=== PATIENT | male | born 1960 | race Caucasian/White ===

== ENCOUNTER 2018-01-17 20:39 | Emergency (ER) | payer MEDICAID ==
[2018-01-17] MEDS ORDERED: Sodium Chloride 0.9% 10 ML Syringe FLUSH PRN (20:48)
[2018-01-17] MEDS ORDERED: Famotidine 20 MG/2 ML SDV IVPUSH ONE (20:48)
--- NOTE | 2018-01-17 20:48 | EDM.PDOC ---
ED HPI GENERAL MEDICAL PROBLEM - General Chief Complaint: Neurological Problem Stated Complaint: facial droop Time Seen by Provider: 01/17/18 20:39 Source of Information: Reports: Patient, Old Records ([facility] chart/EMR) History Limitations: Reports: No Limitations - History of Present Illness INITIAL COMMENTS - FREE TEXT/NARRATIVE: The patient drove himself to the emergency room via private automobile for evaluation of some left facial paresthesias, tongue numbness, and facial drooping with symptoms starting at about 18:00 hours this evening. Symptoms are similar to his previous episode of Gloria's palsy with complete resolution of symptoms after that episode. He has been having some left-sided intermittent tooth pain over the last several weeks, however none currently. He did have similar type symptoms a couple of days ago. Patient did have a panic attack about one week ago with general paresthesias at that time but no other neurological deficits. No history of recent headaches, visual changes, diplopia , change in mental status, or other change in neurological status. The patient denies any chest pain/pressure, heart flutter, dizziness, orthostasis, orthopnea , diaphoresis, paresthesias, recent decreased exercise tolerance, or any other anginal-type symptoms. No recent history of abdominal pain, heartburn, nausea, diarrhea, melena, gross hematochezia, or any food intolerance, including fatty foods, etc.. He denies any gross hematuria, colic, or other UTI symptoms. The patient also denies any recent fever, cough, wheezing, dyspnea, etc.. He denies any pain or discomfort currently. Onset: Today, Gradual Onset Date: 01/17/18 Onset Time: 18:00 Duration: Constant, Getting Worse Location: Reports: Face. Denies: Head, Neck, Chest, Abdomen, Back, Pelvis, Upper Extremity, Left, Upper Extremity, Right, Lower Extremity, Left, Generalized, Radiates to Quality: Reports: Same as Previous Episode, Other (No current pain) Severity: Moderate Improves with: Reports: None Worsens with: Reports: None Context: Reports: Other (As above) Associated Symptoms: Reports: Weakness (Left facial). Denies: Confusion, Chest Pain, Cough, Diaphoresis, Fever/Chills, Headaches, Loss of Appetite, Malaise, Nausea/Vomiting, Seizure, Shortness of Breath, Syncope Treatments PAIL BAILER: Reports: Other (see below) (None) - Related Data Allergies Allergy/AdvReac Type Severity Reaction Status Date / Time tramadol Allergy Dizziness Verified 01/17/18 20:49 Home Meds: Home Meds Amitriptyline HCl 10 mg PO BEDTIME 05/30/14 [History] Aspirin 325 mg PO DAILY 05/30/14 [History] Atenolol [Tenormin] 25 mg PO DAILY 05/30/14 [History] DULoxetine HCl [Duloxetine HCl] 30 mg PO DAILY 05/30/14 [History] Exenatide [Byetta] 10 mcg SUBCUT BID 05/30/14 [History] Fenofibrate Nanocrystallized [Fenofibrate] 145 mg PO DAILY 05/30/14 [History] Hydrochlorothiazide 25 mg PO DAILY 05/30/14 [History] Insulin Aspart [NovoLOG] 60 units SUBCUT TIDAC 05/30/14 [History] Insulin Glarg,Human.Rec.Analog [Lantus] 100 unit SUBCUT BEDTIME 05/30/14 [ History] Lisinopril [Prinivil] 10 mg PO DAILY 05/30/14 [History] Omeprazole 40 mg PO DAILY 05/30/14 [History] QUEtiapine Fumarate [Seroquel] 25 mg PO DAILY 05/30/14 [History] Simvastatin [Zocor] 20 mg PO DAILY 05/30/14 [History] metFORMIN [Glucophage] 1,000 mg PO BID 05/30/14 [History] Acetaminophen 1,000 mg PO Q4HR PRN 11/05/15 [History] Ibuprofen [Motrin] 800 mg PO Q8H PRN 01/17/18 [History] Past Medical History HEENT History: Reports: Hard of Hearing, Impaired Vision, Other (See Below). Denies: Allergic Rhinitis, Cataract, Glaucoma, Macular Degeneration, Retinal Detachment Other HEENT History: Patient wears glasses. Right-sided hearing loss with no workup to this point Cardiovascular History: Reports: Arrhythmia, High Cholesterol, Hypertension, Other (See Below). Denies: Afib, Aneurysm, Blood Clots/VTE/DVT, CAD, Heart Failure, Heart Murmur, TX, PVD, Syncope Other Cardiovascular History: Hyperlipidemia with secondary fatty liver and fatty pancreas by ultrasound. Incomplete right bundle branch block history of tachycardia and mild left atrial enlargement Respiratory History: Reports: COPD, Sleep Apnea, Other (See Below). Denies: Asthma, Bronchitis, Recurrent, Intubation, Previous, PE, Pneumothorax, TB Other Respiratory History: Severe obstructive sleep apnea with current Bi-PAP therapy. COPD by chest x-ray Gastrointestinal History: Reports: Cholelithiasis, Colon Polyp, Diverticulosis, GERD, Other (See Below). Denies: Bowel Obstruction, Celiac Disease, Chronic Constipation, Chronic Diarrhea, Fecal Incontinence, Gastritis, GI Bleed, Hepatitis, Hiatal Hernia, Inflammatory Bowel Disease, Irritable Bowel Syndrome, Jaundice, Pancreatitis, PUD Other Gastrointestinal History: Fatty liver as above. Nonsymptomatic cholelithiasis and diverticulosis by CT scan. Colonic Polypectomy 3 with polyps of unknown character in about 2013 Genitourinary History: Reports: BPH, Pyelonephritis, Renal Calculus, Urinary Incontinence, Other (See Below). Denies: Acute Renal Failure, Chronic Renal Insuffiency, Diabetic Nephropathy, Retention, Urinary, STD, UTI, Recurrent Other Genitourinary History: Left-sided hydronephrosis and urolithiasis on with spontaneous passage. Large stable benign right renal cyst. Musculoskeletal History: Reports: Arthritis, Back Pain, Chronic, Neck Pain, Chronic, Osteoarthritis, Other (See Below). Denies: Amputation, Fracture, Gout , RA, SLE Other Musculoskeletal History: Distal fibular fracture at about age 13. Severe low back pain with secondary disability. Idiopathic myositis with secondary CPK elevation. Carpal tunnel syndrome Neurological History: Reports: Headaches, Chronic, Head Trauma, Neuropathy, Diabetic, Neuropathy, Peripheral, Other (See Below). Denies: Cerebral Aneurysms , Concussion, CVA, Migraines, MS, Parkinson's, Seizure, Speech Problems, TIA, Vertigo Other Neuro History: [place] Palsy left-sided. Minor left occipital contusion at about age 10. Psychiatric History: Reports: Anxiety, Depression, Panic Attack. Denies: Abuse , Victim of, ADD, ADHD, Addiction, Alzheimers Disease, Dementia, Psych Hospitalization(s), PTSD, Suicide Attempt, Suicidal Ideation Endocrine/Metabolic History: Reports: Diabetes, Type II, IDDM. Denies: Diabetes , Type I, Diabetes Mellitus, Type 3c, Hypothyroidism Hematologic History: Denies: Anemia, Blood Transfusion(s), Iron Deficiency Immunologic History: Reports: None. Denies: AIDS, HIV, SLE Oncologic (Cancer) History: Reports: None. Denies: Basal Cell Carcinoma, Cervix , Colon, Hodgkin's Lymphoma, Leukemia, Lymphoma, Malignant Melanoma, Non-Hodgkin 's Lymphoma, Squamous Cell Carcinoma Dermatologic History: Reports: None, Eczema, Psoriasis, Other (See Below) Other Dermatologic History: Lipoma of the right axillary region - Infectious Disease History Infectious Disease History: Reports: Chicken Pox, Measles, Mumps, Pertussis ( Whooping Cough), Other (See Below). Denies: C-Difficile, Meningitis, Mononucleosis, MRSA, Rheumatic Fever, Rubella, Scarlet Fever, Shingles, TB, VRE Other Infectious Disease History: Gloria's palsy as above - Past Surgical History Head Surgeries/Procedures: Reports: None HEENT Surgical History: Reports: Adenoidectomy, Oral Surgery, Tonsillectomy, Other (See Below). Denies: Cataract Surgery, Detached Retina, Eye Surgery, Laser Surgery, LASIK, Myringotomy w Tube(s), Naso-Sinus Surgery Other HEENT Surgeries/Procedures: Teeth extractions. Tonsillectomy and adenoidectomy at age 6 Cardiovascular Surgical History: Reports: None. Denies: Varicose, Vascular Surgery Respiratory Surgical History: Reports: None. Denies: Thoracentesis GI Surgical History: Reports: Appendectomy, Colonoscopy, Polypectomy, Other ( See Below). Denies: Cholecystectomy, EGD, Hernia, Abdominal, Hernia, Inguinal, Hernia Repair/Other Other GI Surgeries/Procedures: Colonoscopy with polypectomy as above in about 2013. Appendectomy at age 3 Male Surgical History: Reports: Circumcision, Other (See Below). Denies: Vasectomy Other Male Surgeries/Procedures: Circumcision as an Endocrine Surgical History: Reports: None. Denies: Thyroid Biopsy Neurological Surgical History: Reports: None. Denies: C-Spine, Discectomy, Laminectomy, Lumbar Spine, Sacral Spine, Spinal Fusion, Vertebroplasty Musculoskeletal Surgical History: Reports: None. Denies: Arthroscopic Procedure , Carpal Tunnel, Ganglion Cyst, Joint Replacement, ORIF, Shoulder Surgery Oncologic Surgical History: Reports: None Dermatological Surgical History: Reports: None - Past Imaging History Past Imaging History: Reports: Cardiac Echo (11/21/12 with ejection fraction of 69 %), CAT Scan (CT scan of the abdomen and pelvis with contrast on 03/16/15. Soft tissue ultrasound of the neck on 01/20/09), Mammogram ([place]), Sleep Study ( Multiple previous sleep studies with last evaluation on 01/20/16), Stress Testing (Cardiolite stress test on 08/22/08, possible additional follow-up distant repeat evaluation), Ultrasound (Renal ultrasound on 11/06/15. Right breast ultrasound on 09/15/17. Jose De Jesus ultrasound on 04/16/13), Other (See Below) (Nerve conduction studies and EMGs in about 2005) Social & Family History - Family History HEENT: Reports: Cataract, Impaired Vision, Other (See Below) Other HEENT Family History: Father with cataracts Cardiac: Reports: Arrhythmia, Bypass, CAD, Hypertension, TX, Pacemaker, Stent, Other (See Below) Other Cardiac Family History: Parents with known heart disease and father requiring a four-vessel CABG in his 50s and subsequently in his 50s to 60s. Mother with rheumatic fever which did require valve replacement with subsequent repeat replacement and pacemaker placement. Hyperlipidemia in his parents Respiratory: Reports: COPD, Other (See Below) Other Respiratory Family Hisory: Father with COPD with history of tobacco use GI: Reports: Colon Polyps, Diverticulitis, Diverticulosis, Other (See Below) Other GI Family History: Mother with diverticulitis. Parents with polyps of unknown type Neurological: Reports: CVA, Other (See Below) Other Neurological Family History: Parents with history of CVA Psychiatric: Reports: Anxiety, Depression, Other (See Below) Other Psychiatric Family History: Mother with anxiety depression disorder Endocrine/Metabolic: Reports: Diabetes, type II, Hypothyroidism, IDDM, Other ( See Below) Other Endocrine/Metabolic Family History: Father with hypothyroidism and AODMID Hematologic: Reports: Anemia, Other (See Below) Other Hematologic Family History: Mother with anemia Oncologic: Reports: Breast, Colon, Esophageal, Other (See Below) Other Oncologic Family History: Maternal grandmother with breast cancer. Paternal grandfather with possible esophageal cancer. Father with colon cancer - Tobacco Use Smoking Status *Q: Former Smoker Years of Tobacco use: 17 Packs/Tins Daily: 1 Packs/Tins Daily Comment: Smoked cigarettes between ages 20 and 37 Used Tobacco, but Quit: Yes Smoking Cessation Information Provided To Patient: No Second Hand Smoke Exposure: No Second Hand Smoke Education Provided: No - Alcohol Use Alcohol Use History: Yes Days Per Week of Alcohol Use: 0 (No previous DWIs, problems with alcohol abuse, etc.) Number of Drinks Per Day: 2 (Usually beer or mixed drinks about every 3 months) Total Drinks Per Week: 0 Alcohol Use in Last Twelve Months: Yes Alcohol Use Frequency: Socially - Recreational Drug Use Recreational Drug Use: No Drug Use in Last 12 Months: No Recreational Drug Type: Reports: Marijuana/Hashish (Experimental as a teenager) . Denies: Amphetamines (Speed), Cocaine, Heroin, Inhalants (Glues, Solvents, Aerosols), LSD (Acid), Methamphetamine, Morphine, Oxycodone - Living Situation & Occupation Living situation: Reports: ( from second in 1990 and from his first in 1986 with 2 children from this marriage), with Family (Dad) Occupation: Disabled (Secondary to low back pain as above in 2001) ED ROS GENERAL - Review of Systems Review Of Systems: See Below ED EXAM, NEURO - Physical Exam Exam: See Below Exam Limited By: No Limitations General Appearance: Alert, WD/WN, No Apparent Distress, Anxious (Mild) Eye Exam: Bilateral Eye: EOMI, Normal Fundi, Normal Inspection (No nystagmus), PERRL Ears: Normal External Exam, Normal Canal, Normal TMs, Hearing Loss (Stable by history, including right-sided hearing loss) Nose: Normal Inspection, Normal Mucosa, No Blood Throat/Mouth: Normal Gums, Normal Oropharynx, Normal Voice, No Airway Compromise. No: Normal Teeth (Multiple caries including broken teeth into the gumline with no acute abscesses), Dysphagia, Inflammation, Perioral Cyanosis Head Exam: Atraumatic, Normocephalic. No: Facial Swelling, Facial Tenderness, Sinus Tenderness Neck: Normal Inspection, Supple, Non-Tender, Full Range of Motion. No: Carotid Bruit, Lymphadenopathy (L), Lymphadenopathy (R), Thyromegaly Respiratory/Chest: No Respiratory Distress, Lungs Clear, Normal Breath Sounds, No Accessory Muscle Use, Chest Non-Tender. No: Pleural Rub, Retractions Cardiovascular: Normal Peripheral Pulses, Regular Rate, Rhythm, No Edema, No Gallop, No JVD, No Murmur, No Rub. No: Gallop/S3, Gallop/S4, Friction Rub GI/Abdominal: Normal Bowel Sounds, Soft, Non-Tender, No Organomegaly, No Distention, No Abnormal Bruit, No Mass, Other (Obese). No: Guarding (Male) Exam: Deferred Rectal (Males) Exam: Deferred Neurological: Alert, Normal Dorsiflexion, CN II-XII Intact, Normal Plantar Flexion, Normal Gait, Normal Reflexes (Negative Babinski's, finger to nose, and pronator rotation tests. No evidence of facial paresis, tongue deviation, orthostasis, etc.. Excellent reverse thought processes.). No: Normal Mood/ Affect (Mild anxious affect), No Motor/Sensory Deficits (Moderate left facial paresis with forehead sparing) Back Exam: Normal Inspection, Full Range of Motion. No: CVA Tenderness (L), CVA Tenderness (R), Muscle Spasm Extremities: Normal Inspection, Normal Range of Motion, Non-Tender, No Pedal Edema, Normal Capillary Refill. No: Jose's Sign Psychiatric: Anxious (Mild), Depressed Mood (Mild) Skin Exam: Warm, Dry, Intact, Normal Color, No Rash. No: Diaphoretic, Wound/ Incision EKG INTERPRETATION EKG Date: 01/17/18 Time: 21:04 Rhythm: NSR Rate (Beats/Min): 86 [place]: LAD-Left [place] Deviation (Extended left cardiac axis) P-Wave: Enlarged (Diffuse biphasic P wavesmoderate) QRS: RBBB (QRS interval 0.13 seconds representing a complete right bundle branch block with T-wave inversion in lead V1 and nonspecific ST changes in lead aVL) ST-T: Other (As above) QT: Normal MN/PQ Interval: Neuro 0.13 seconds representing a short MN interval with no delta waves noted. Extreme poor R-wave progression in the anterior leads Comparison: Change From Previous EKG (New nonspecific ST changes in lead aVL and conversion from previous incomplete to complete right bundle branch block since 11/05/15) EKG Interpretation Comments: 1. No acute ischemic changes 2. Complete right bundle branch block with previous history of incomplete right bundle branch block 3. Left atrial enlargement 4. Short MN interval Course - Vital Signs Last Recorded V/S: Last Vital Signs Temp 36.2 C 01/17/18 20:45 Pulse 90 01/17/18 21:18 Resp 22 H 01/17/18 21:18 BP 119/74 01/17/18 21:18 Pulse Ox 100 01/17/18 21:18 Vital Signs - 24 hr 01/17/18 01/17/18 01/17/18 20:45 21:05 21:18 Temperature [ 36.2 C Temporal] Pulse, 89 89 90 Peripheral [ Right Brachial] Respiratory 23 H 22 H 22 H Rate Blood Pressure 135/57 L 137/71 119/74 [Right Upper Arm] O2 Sat by Pulse 97 100 100 Oximetry 01/17/18 01/17/18 01/17/18 21:26 21:41 21:56 Temperature [ Temporal] Pulse, 91 96 97 Peripheral [ Right Brachial] Respiratory 23 H 24 H 23 H Rate Blood Pressure 128/67 128/73 130/100 H [Right Upper Arm] O2 Sat by Pulse 98 98 99 Oximetry 01/17/18 22:15 Temperature [ Temporal] Pulse, 99 Peripheral [ Right Brachial] Respiratory 21 H Rate Blood Pressure 159/75 H [Right Upper Arm] O2 Sat by Pulse 100 Oximetry - Orders/Labs/Meds Orders: Active Orders 24 hr Category Date Time Status Blood Glucose Check, Bedside [RC] STAT Care 01/17/18 20:48 Active Cardiac Monitoring [RC] STAT Care 01/17/18 20:48 Active EKG Documentation Completion [RC] ASDIRECTED Care 01/17/18 20:48 Active NIH Stroke Scale [RC] ASDIRECTED Care 01/17/18 20:48 Active Oxygen Therapy, ED [RC] CONTINUOUS Care 01/17/18 20:48 Active Peripheral IV Care [RC] . DIRECTED Care 01/17/18 20:48 Active Pulse Oximetry [RC] CONTINUOUS Care 01/17/18 20:48 Active Up With Assistance [RC] ASDIRECTED Care 01/17/18 20:48 Active Vital Signs [RC] PFP Care 01/17/18 20:48 Active Nothing per Oral Now Diet [DIET] Diet 01/17/18 Breakfast Active Chest 1V Frontal [CR] Stat Exams 01/17/18 20:48 Taken Head wo Cont [CT] Stat Exams 01/17/18 20:48 Taken PROLACTIN [REF] Stat Lab 01/17/18 20:50 Received Sodium Chloride 0.9% [Saline Flush] Med 01/17/18 20:48 Active 10 ml FLUSH ASDIRECTED PRN Obtain Past Medical Record [OM.PC] Stat Oth 01/17/18 20:48 Active Peripheral IV Insertion Adult [OM.PC] Stat Oth 01/17/18 20:48 Ordered Resuscitation Status Stat Resus Stat 01/17/18 20:48 Ordered Medication Orders Sodium Chloride (Saline Flush) 10 ml FLUSH ASDIRECTED PRN PRN Reason: Keep Vein Open Labs: Laboratory Tests 01/17/18 01/17/18 01/17/18 Range/Units 20:50 20:50 20:50 WBC 5.7 (4.0-10.2) K/uL RBC 3.90 L (4.33-5.41) M/uL Hgb 13.0 L (13.1-16.8) g/dL Hct 35.2 L (39.0-49.0) % MCV 90.3 D (84.0-98.0) fL MCH 33.3 (28.2-33.3) pg MCHC 36.9 H (31.7-36.0) g/dL RDW 12.9 (11.2-14.1) % Plt Count 276 (150-350) K/uL Neut % (Auto) 63.9 (45.0-80.0) % Lymph % (Auto) 27.1 (10.0-50.0) % Gilliam % (Auto) 7.4 (2.0-14.0) % Eos % (Auto) 1.1 (0.0-5.0) % Baso % (Auto) 0.5 (0.0-2.0) % Neut # (Auto) 3.61 (1.40-7.00) K/uL Lymph # (Auto) 1.53 (0.50-3.50) K/uL Gilliam # (Auto) 0.42 (0.00-1.00) K/uL Eos # (Auto) 0.06 (0.00-0.50) K/uL Baso # (Auto) 0.03 (0.00-0.20) K/uL PT 10.1 (9.8-11.7) SEC INR 0.9 APTT 24.7 (22.1-29.8) SEC D-Dimer, Quantitative < 100 (0-400) ng/mL Sodium (136-145) mmol/L Potassium (3.5-5.1) mmol/L Chloride (98-107) mmol/L Carbon Dioxide (21.0-32.0) mmol/L BUN (7-18) mg/dL Creatinine (0.51-1.17) mg/dL Est Cr Clr Drug Dosing mL/min Estimated GFR (MDRD) mL/min Glucose (74-106) mg/dL Lactic Acid (0.4-2.0) mmol/L Uric Acid (2.6-7.2) mg/dL Calcium (8.5-10.1) mg/dL Magnesium (1.8-2.4) mg/dL Total Bilirubin (0.2-1.0) mg/dL AST (15-37) U/L ALT (12-78) U/L Alkaline Phosphatase (46-116) IU/L Creatine Kinase (26-308) U/L Creatine Kinase Index (0.0-2.5) % CK-MB (CK-2) (0.00-3.60) ng/mL Troponin I (0.000-0.056) ng/mL NT-Pro-B Natriuret Pep (0-125) pg/mL Total Protein (6.4-8.2) g/dL Albumin (3.4-5.0) g/dL TSH, Ultra Sensitive (0.358-3.740) mIU/mL 01/17/18 01/17/18 Range/Units 20:50 20:50 WBC (4.0-10.2) K/uL RBC (4.33-5.41) M/uL Hgb (13.1-16.8) g/dL Hct (39.0-49.0) % MCV (84.0-98.0) fL MCH (28.2-33.3) pg MCHC (31.7-36.0) g/dL RDW (11.2-14.1) % Plt Count (150-350) K/uL Neut % (Auto) (45.0-80.0) % Lymph % (Auto) (10.0-50.0) % Gilliam % (Auto) (2.0-14.0) % Eos % (Auto) (0.0-5.0) % Baso % (Auto) (0.0-2.0) % Neut # (Auto) (1.40-7.00) K/uL Lymph # (Auto) (0.50-3.50) K/uL Gilliam # (Auto) (0.00-1.00) K/uL Eos # (Auto) (0.00-0.50) K/uL Baso # (Auto) (0.00-0.20) K/uL PT (9.8-11.7) SEC INR APTT (22.1-29.8) SEC D-Dimer, Quantitative (0-400) ng/mL Sodium 139 (136-145) mmol/L Potassium 4.3 (3.5-5.1) mmol/L Chloride 101 (98-107) mmol/L Carbon Dioxide 23.6 (21.0-32.0) mmol/L BUN 23 H (7-18) mg/dL Creatinine 1.06 (0.51-1.17) mg/dL Est Cr Clr Drug Dosing 76.89 mL/min Estimated GFR (MDRD) > 60 mL/min Glucose 262 H* (74-106) mg/dL Lactic Acid 1.6 (0.4-2.0) mmol/L Uric Acid 6.9 (2.6-7.2) mg/dL Calcium 9.1 (8.5-10.1) mg/dL Magnesium 1.2 L (1.8-2.4) mg/dL Total Bilirubin 0.5 (0.2-1.0) mg/dL AST 34 (15-37) U/L ALT 39 (12-78) U/L Alkaline Phosphatase 60 (46-116) IU/L Creatine Kinase 482 H (26-308) U/L Creatine Kinase Index 3.2 H (0.0-2.5) % CK-MB (CK-2) 15.60 H* (0.00-3.60) ng/mL Troponin I 0.000 (0.000-0.056) ng/mL NT-Pro-B Natriuret Pep 22 (0-125) pg/mL Total Protein 7.7 (6.4-8.2) g/dL Albumin 4.5 (3.4-5.0) g/dL TSH, Ultra Sensitive 3.996 H (0.358-3.740) mIU/mL Meds: Medications Generic Name Dose Route Start Last Admin Trade Name Freq PRN Reason Stop Dose Admin Sodium Chloride 10 ml 01/17/18 20:48 Saline Flush FLUSH ASDIRECTED PRN Keep Vein Open Discontinued Medications Generic Name Dose Route Start Last Admin Trade Name Freq PRN Reason Stop Dose Admin Famotidine 40 mg 01/17/18 20:48 01/17/18 20:59 Pepcid IVPUSH 01/17/18 20:49 40 mg ONETIME ONE Administration - Radiology Interpretation Free Text/Narrative:: panel monitor shows normal sinus rhythm with heart rate in the 80s to 90s with no ectopy or arrhythmia Chest x-ray, portable, shows evidence of moderate pulmonary obstructive disease and cardiomegaly with mild prominence of the proximal aortic arch. No CHF, pulmonary infiltrates, pneumothorax, etc. Telephone consultation at 21:30 hours with the radiology department at [facility]. Preliminary verbal report of noncontrast CT scan of the head with no evidence of acute CVA or cerebral changes. Possible bilateral mastoiditis, however. CT Results Date: 01/17/18 CT Results Time: 21:30 Departure - Departure Time of Disposition: 22:40 Disposition: DC/Tfer to [facility] Condition: Fair Clinical Impression: Hypothyroidism (acquired), Diabetes mellitus, Osteoarthritis, Complex dental caries, Peptic reflux disease, Mixed anxiety depressive disorder, Anemia, Hypomagnesemia, Coronary artery disease CVA (cerebral vascular accident) Qualifiers: CVA mechanism: unspecified Qualified Code(s): I63.9 - Cerebral infarction, unspecified COPD (chronic obstructive pulmonary disease) Qualifiers: COPD type: emphysema Emphysema type: panlobular Qualified Code(s): J43.1 - Panlobular emphysema - Discharge Information Referrals: Ruddy White PA [Physician Sinker Puller] - PCP,Unknown [Primary Care Provider] - Forms: ED Department Discharge, Interfacility Transfer EMTALA - Problem List & Annotations (1) CVA (cerebral vascular accident) SNOMED Code(s): 443319149 Code(s): I63.9 - CEREBRAL INFARCTION, UNSPECIFIED Status: Acute Priority : High Current Visit: Yes Onset Date: 01/17/18 Annotation/Comment:: Possible CVA with left facial paresis but no other neurological deficits. Note forehead sparing. Previous history of Golria's palsy in this area as above with previous complete resolution of those symptoms, including facial drooping. Stroke code called by me immediately upon patient's arrival to the emergency room. The patient already took 650 mg of aspirin chew and swallow shortly prior to arrival to our facility. Initial telephone consultation at 22:[address] Trevizo, emergency room physician at [facility], who does accept the patient for transfer to their emergency room for further treatment and evaluation. Treatment recommendations given, however he is requesting that I talk to the on-call neurologist prior to patient transfer. Subsequent telephone consultation at 22:[address] Roberts, neurologist, who is in agreement with the above treatment plan, with no further treatment recommendations given. Neurological status and vital signs stable at time of transfer. Ambulance transfer with web analytics developer accompaniment. Despite CT of the head findings as above no direct clinical evidence of mastoiditis at this time. Qualifiers: CVA mechanism: unspecified Qualified Code(s): I63.9 - Cerebral infarction, unspecified (2) Coronary artery disease SNOMED Code(s): 84832333 Code(s): I25.10 - ATHSCL HEART DISEASE OF [place] CORONARY ARTERY W/O ANG PCTRS Status: Acute Priority: High Current Visit: Yes Onset Date: Annotation/Comment:: Note CK-MB and cardiac index elevation normal troponin I, etc. Only mild nonspecific EKG changes as above. No chest pain or true anginal type symptoms with chest pain protocol not initiated in the emergency room. The patient already had SHANNON arrival as above. Consider cardiology consultation/workup depending on his clinical course. He does have a previous history of idiopathic myositis and is currently on a statin. Qualifiers: Coronary Disease-Associated Artery/Lesion type: [place] artery [place] vs. transplanted heart: [place] heart Associated angina: without angina Qualified Code(s): I25.10 - Atherosclerotic heart disease of [place] coronary artery without angina pectoris (3) COPD (chronic obstructive pulmonary disease) SNOMED Code(s): 38799142 Code(s): J44.9 - CHRONIC OBSTRUCTIVE PULMONARY DISEASE, UNSPECIFIED Status : Chronic Priority: Medium Current Visit: Yes Annotation/Comment:: COPD by chest x-ray. Note history of sleep apnea with patient compliant with his BiPAP. No recent fever or bronchitic type symptoms. Consider PFTs on an outpatient basis Qualifiers: COPD type: emphysema Emphysema type: panlobular Qualified Code(s): J43.1 - Panlobular emphysema (4) Hypothyroidism (acquired) SNOMED Code(s): 141850309 Code(s): E03.9 - HYPOTHYROIDISM, UNSPECIFIED Status: Acute Priority: Medium Current Visit: Yes Onset Date: 01/17/18 Annotation/Comment:: Newly diagnosed. No thyroid type symptoms. Consider initiation of Synthroid supplementation and repeat TSH in 4 weeks (5) Mixed anxiety depressive disorder SNOMED Code(s): 969895635 Code(s): F41.8 - OTHER SPECIFIED ANXIETY DISORDERS Status: Chronic Priority: Medium Current Visit: Yes Annotation/Comment:: Stable by history with improvement after recent change in his medical therapy by his history. Note panic attack one week ago. Continue to observe closely by his regular providers. (6) Peptic reflux disease SNOMED Code(s): 738423531 Code(s): K21.9 - GASTRO-ESOPHAGEAL REFLUX DISEASE WITHOUT ESOPHAGITIS Status: Chronic Priority: Medium Current Visit: Yes Annotation/Comment:: Stable by history. Note mild anemia with no evidence of GI bleed. High-dose IV Pepcid given as GI prophylaxis (7) Complex dental caries SNOMED Code(s): 45244107 Code(s): K02.9 - DENTAL CARIES, UNSPECIFIED Status: Chronic Current Visit : Yes Onset Date: 05/30/14 Annotation/Comment:: Persistent caries with patient having poor dental follow-up. Follow-up with dentist SHANNON advisable (8) Diabetes mellitus SNOMED Code(s): 25457110 Code(s): E11.9 - TYPE 2 DIABETES MELLITUS WITHOUT COMPLICATIONS Status: Chronic Priority: Medium Current Visit: Yes Annotation/Comment:: Patient does not take home Accu-Cheks and uses a sliding scale only based on symptoms. Continue to observe closely with diabetic teaching advisable. Compliance with did already strongly encouraged. (9) Osteoarthritis SNOMED Code(s): 414469357 Code(s): M19.90 - UNSPECIFIED OSTEOARTHRITIS, UNSPECIFIED SITE Status: Chronic Priority: Low Current Visit: Yes Annotation/Comment:: Stable by history with current disability secondary to chronic low back pain as above. (10) Anemia SNOMED Code(s): 535489621 Code(s): D64.9 - ANEMIA, UNSPECIFIED Status: Acute Priority: Medium Current Visit: Yes Onset Date: ~01/17/18 Annotation/Comment:: As above. Consider workup depending on his clinical course. Qualifiers: Anemia type: unspecified type Qualified Code(s): D64.9 - Anemia, unspecified (11) Hypomagnesemia SNOMED Code(s): 037542709 Code(s): E83.42 - HYPOMAGNESEMIA Status: Acute Priority: Medium Current Visit: Yes Onset Date: 01/17/18 Annotation/Comment:: Consider magnesium oxide supplementation - Problem List Review Problem List Initiated/Reviewed/Updated: Yes - My Orders Last 24 Hours: My Active Orders 01/17/18 20:48 Blood Glucose Check, Bedside [RC] STAT Cardiac Monitoring [RC] STAT EKG Documentation Completion [RC] ASDIRECTED NIH Stroke Scale [RC] ASDIRECTED Oxygen Therapy, ED [RC] CONTINUOUS Peripheral IV Care [RC] . DIRECTED Pulse Oximetry [RC] CONTINUOUS Up With Assistance [RC] ASDIRECTED Vital Signs [RC] PFP Chest 1V Frontal [CR] Stat Head wo Cont [CT] Stat Sodium Chloride 0.9% [Saline Flush] 10 ml FLUSH ASDIRECTED PRN Obtain Past Medical Record [OM.PC] Stat Peripheral IV Insertion Adult [OM.PC] Stat Resuscitation Status Stat 01/17/18 20:50 PROLACTIN [REF] Stat 01/17/18 Breakfast Nothing per Oral Now Diet [DIET] - Assessment/Plan Last 24 Hours: My Active Orders 01/17/18 20:48 Blood Glucose Check, Bedside [RC] STAT Cardiac Monitoring [RC] STAT EKG Documentation Completion [RC] ASDIRECTED NIH Stroke Scale [RC] ASDIRECTED Oxygen Therapy, ED [RC] CONTINUOUS Peripheral IV Care [RC] . DIRECTED Pulse Oximetry [RC] CONTINUOUS Up With Assistance [RC] ASDIRECTED Vital Signs [RC] PFP Chest 1V Frontal [CR] Stat Head wo Cont [CT] Stat Sodium Chloride 0.9% [Saline Flush] 10 ml FLUSH ASDIRECTED PRN Obtain Past Medical Record [OM.PC] Stat Peripheral IV Insertion Adult [OM.PC] Stat Resuscitation Status Stat 01/17/18 20:50 PROLACTIN [REF] Stat 01/17/18 Breakfast Nothing per Oral Now Diet [DIET] Assessment:: As above Plan: As above. Extensive precautions were given to the patient, who is in agreement with the treatment plan. Ambulance transfer with web analytics developer accompaniment
[2018-01-17 21:19] LABS: CHLORIDE,CL 101 mmol/L (98-107); SODIUM,NA 139 mmol/L (136-145)
[2018-01-17 22:31] VITALS: BP 159/75
== END 2018-01-17 22:55 ==
LOC: LL.ED 20:39
DX: K21.9 Gastro-esophageal reflux disease without esophagitis (principal); K02.9 Dental caries, unspecified; F41.8 Other specified anxiety disorders; M19.90 Unspecified osteoarthritis, unspecified site; J43.1 Panlobular emphysema; D64.9 Anemia, unspecified; E03.9 Hypothyroidism, unspecified; E11.9 Type 2 diabetes mellitus without complications; E78.00 Pure hypercholesterolemia, unspecified; I10 Essential (primary) hypertension; E78.5 Hyperlipidemia, unspecified; G47.33 Obstructive sleep apnea (adult) (pediatric); Z88.5 Allergy status to narcotic agent; Z79.82 Long term (current) use of aspirin; Z79.899 Other long term (current) drug therapy; Z79.4 Long term (current) use of insulin; Z99.89 Dependence on other enabling machines and devices; Z87.440 Personal history of urinary (tract) infections; Z87.891 Personal history of nicotine dependence; Z86.73 Personal history of transient ischemic attack (TIA), and cerebral infarction without residual deficits
CPT/HCPCS: 36415; 70450; 71045; 80053; 82550; 82553; 83605; 83735; 83880; 84146; 84443; 84484; 84550; 85025; 85379; 85610; 85730; 93005; 96374; 99285; S0028

== ENCOUNTER 2020-09-12 14:10 | Emergency (ER) | payer MEDICAID ==
[2020-09-12 14:18] VITALS: BP 176/91; PULSE 74
[2020-09-12 14:55] LABS: CHLORIDE,CL 100 mmol/L (98-107); SODIUM,NA 137 mmol/L (136-145)
--- NOTE | 2020-09-12 15:39 | EDM.PDOC ---
ED HPI GENERAL MEDICAL PROBLEM - General Chief Complaint: General Stated Complaint: headache Time Seen by Provider: 09/12/20 14:17 Source of Information: Reports: Patient History Limitations: Reports: No Limitations - History of Present Illness INITIAL COMMENTS - FREE TEXT/NARRATIVE: ABDALLA for past 3 days Alos with decreased appetite and body aches No known Covid exposures No chest pain No N/V/D Is diabetic but does not check his glucose Onset: Gradual Duration: Day(s):, Intermittent Location: Reports: Generalized headache, back of head Pain Score (Numeric/FACES): 7 - Related Data Allergies Allergy/AdvReac Type Severity Reaction Status Date / Time tramadol Allergy Dizziness Verified 09/12/20 14:18 Home Meds: Home Meds Amitriptyline HCl 10 mg PO BEDTIME 05/30/14 [History] Aspirin 325 mg PO DAILY 05/30/14 [History] DULoxetine HCl [Duloxetine HCl] 30 mg PO TID 05/30/14 [History] Exenatide [Byetta] 10 mcg SUBCUT BID 05/30/14 [History] Fenofibrate Nanocrystallized [Fenofibrate] 145 mg PO DAILY 05/30/14 [History] Hydrochlorothiazide 25 mg PO DAILY 05/30/14 [History] Insulin Aspart [NovoLOG] 60 units SUBCUT TIDAC 05/30/14 [History] Insulin Glarg,Human.Rec.Analog [Lantus] 100 unit SUBCUT BEDTIME 05/30/14 [History] QUEtiapine Fumarate [Seroquel] 25 mg PO DAILY 05/30/14 [History] Simvastatin [Zocor] 20 mg PO DAILY 05/30/14 [History] atenoloL [Tenormin] 25 mg PO DAILY 05/30/14 [History] lisinopriL [Prinivil] 10 mg PO DAILY 05/30/14 [History] metFORMIN [Glucophage] 1,000 mg PO BID 05/30/14 [History] Acetaminophen 1,000 mg PO Q4HR PRN 11/05/15 [History] Ibuprofen [Motrin] 800 mg PO Q8H PRN 01/17/18 [History] Past Medical History HEENT History: Reports: Hard of Hearing, Impaired Vision, Other (See Below) Other HEENT History: Patient wears glasses. Right-sided hearing loss with no workup to this point Cardiovascular History: Reports: Arrhythmia, High Cholesterol, Hypertension, Other (See Below) Other Cardiovascular History: Hyperlipidemia with secondary fatty liver and fatty pancreas by ultrasound. Incomplete right bundle branch block history of tachycardia and mild left atrial enlargement Respiratory History: Reports: COPD, Sleep Apnea, Other (See Below) Other Respiratory History: Severe obstructive sleep apnea with current Bi-PAP therapy. COPD by chest x-ray Gastrointestinal History: Reports: Cholelithiasis, Colon Polyp, Diverticulosis, GERD, Other (See Below) Other Gastrointestinal History: Fatty liver as above. Nonsymptomatic cholelithiasis and diverticulosis by CT scan. Colonic Polypectomy 3 with polyps of unknown character in about 2013 Genitourinary History: Reports: BPH, Pyelonephritis, Renal Calculus, Urinary Incontinence, Other (See Below) Other Genitourinary History: Left-sided hydronephrosis and urolithiasis on 03/16/15 with spontaneous passage. Large stable benign right renal cyst. Musculoskeletal History: Reports: Arthritis, Back Pain, Chronic, Neck Pain, Chronic, Osteoarthritis, Other (See Below) Other Musculoskeletal History: Distal fibular fracture at about age 13. Severe low back pain with secondary disability. Idiopathic myositis with secondary CPK elevation. Carpal tunnel syndrome Neurological History: Reports: Headaches, Chronic, Head Trauma, Neuropathy, Diabetic, Neuropathy, Peripheral, Other (See Below) Other Neuro History: Carter Palsy left-sided. Minor left occipital contusion at about age 10. Psychiatric History: Reports: Anxiety, Depression, Panic Attack Endocrine/Metabolic History: Reports: Diabetes, Type II, IDDM Immunologic History: Reports: None Oncologic (Cancer) History: Reports: None Dermatologic History: Reports: None, Eczema, Psoriasis, Other (See Below) Other Dermatologic History: Lipoma of the right axillary region - Infectious Disease History Infectious Disease History: Reports: Chicken Pox, Measles, Mumps, Pertussis (Whooping Cough), Other (See Below) Other Infectious Disease History: Gloria's palsy as above - Past Surgical History Head Surgeries/Procedures: Reports: None HEENT Surgical History: Reports: Adenoidectomy, Oral Surgery, Tonsillectomy, Other (See Below) Other HEENT Surgeries/Procedures: Teeth extractions. Tonsillectomy and adenoidectomy at age 6 Cardiovascular Surgical History: Reports: None Respiratory Surgical History: Reports: None GI Surgical History: Reports: Appendectomy, Colonoscopy, Polypectomy, Other (See Below) Other GI Surgeries/Procedures: Colonoscopy with polypectomy as above in about 2013. Appendectomy at age 3 Male Surgical History: Reports: Circumcision, Other (See Below) Other Male Surgeries/Procedures: Circumcision as an Endocrine Surgical History: Reports: None Neurological Surgical History: Reports: None Musculoskeletal Surgical History: Reports: None Oncologic Surgical History: Reports: None Dermatological Surgical History: Reports: None - Past Imaging History Past Imaging History: Reports: Cardiac Echo (11/21/12 with ejection fraction of 69%), CAT Scan (CT scan of the abdomen and pelvis with contrast on 03/16/15. Soft tissue ultrasound of the neck on 01/20/09), Mammogram (), Sleep Study (Multiple previous sleep studies with last evaluation on 01/20/16), Stress Testing (Cardiolite stress test on 08/22/08, possible additional follow-up distant re peat evaluation), Ultrasound (Renal ultrasound on 11/06/15. Right breast ultrasound on 09/15/17. Jose De Jesus ultrasound on 04/16/13), Other (See Below) (Nerve conduction studies and EMGs in about 2005) Social & Family History - Family History HEENT: Reports: Cataract, Impaired Vision, Other (See Below) Other HEENT Family History: Father with cataracts Cardiac: Reports: Arrhythmia, Bypass, CAD, Hypertension, [place], Pacemaker, Stent, Other (See Below) Other Cardiac Family History: Parents with known heart disease and father requiring a four-vessel CABG in his 50s and subsequently in his 50s to 60s. Mother with rheumatic fever which did require valve replacement with subsequent repeat replacement and pacemaker placement. Hyperlipidemia in his parents Respiratory: Reports: COPD, Other (See Below) Other Respiratory Family Hisory: Father with COPD with history of tobacco use GI: Reports: Colon Polyps, Diverticulitis, Diverticulosis, Other (See Below) Other GI Family History: Mother with diverticulitis. Parents with polyps of unknown type Neurological: Reports: CVA, Other (See Below) Other Neurological Family History: Parents with history of CVA Psychiatric: Reports: Anxiety, Depression, Other (See Below) Other Psychiatric Family History: Mother with anxiety depression disorder Endocrine/Metabolic: Reports: Diabetes, type II, Hypothyroidism, IDDM, Other (See Below) Other Endocrine/Metabolic Family History: Father with hypothyroidism and AODMID Hematologic: Reports: Anemia, Other (See Below) Other Hematologic Family History: Mother with anemia Oncologic: Reports: Breast, Colon, Esophageal, Other (See Below) Other Oncologic Family History: Maternal grandmother with breast cancer. Paternal grandfather with possible esophageal cancer. Father with colon cancer - Tobacco Use Tobacco Use Status *Q: Former Tobacco User Years of Tobacco use: 10 Packs/Tins Daily: 1 Used Tobacco, but Quit: Yes Month/Year Tobacco Last Used: 1999 Second Hand Smoke Exposure: No - Caffeine Use Caffeine Use: Reports: Soda - Recreational Drug Use Recreational Drug Use: No - Living Situation & Occupation Living situation: Reports: ( from second in 1990 and from his first in 1986 with 2 children from this marriage), with Family (Dad) Occupation: Disabled (Secondary to low back pain as above in 2001) ED ROS GENERAL - Review of Systems Review Of Systems: See Below Constitutional: Reports: Other (Body aches) HEENT: Reports: No Symptoms Respiratory: Reports: No Symptoms Cardiovascular: Reports: No Symptoms GI/Abdominal: Reports: No Symptoms Musculoskeletal: Reports: No Symptoms Neurological: Reports: Headache ED EXAM, GENERAL - Physical Exam Exam: See Below Exam Limited By: No Limitations General Appearance: Alert, WD/WN Throat/Mouth: Normal Oropharynx Neck: Supple Respiratory/Chest: Lungs Clear Cardiovascular: Regular Rate, Rhythm GI/Abdominal: Soft, Non-Tender Extremities: No Pedal Edema Neurological: Alert, Oriented Psychiatric: Normal Affect, Normal Mood Course - Vital Signs Last Recorded V/S: Last Vital Signs Temp 96.8 F L 09/12/20 14:11 Pulse 74 09/12/20 14:11 Resp 18 09/12/20 14:11 BP 176/91 H 09/12/20 14:11 Pulse Ox 100 09/12/20 14:11 - Orders/Labs/Meds Labs: Laboratory Tests 09/12/20 09/12/20 09/12/20 Range/Units 14:19 14:35 14:35 WBC 4.4 (4.0-10.2) K/uL RBC 3.41 L (4.33-5.41) M/uL Hgb 10.2 L D (13.1-16.8) g/dL Hct 29.6 L (39.0-49.0) % MCV 86.8 D (84.0-98.0) fL MCH 29.9 (28.2-33.3) pg MCHC 34.5 (31.7-36.0) g/dL RDW 12.0 (11.2-14.1) % Plt Count 351 H D (150-350) K/uL Neut % (Auto) 77.1 (45.0-80.0) % Lymph % (Auto) 13.3 (10.0-50.0) % [place] % (Auto) 8.5 (2.0-14.0) % Eos % (Auto) 0.9 (0.0-5.0) % Baso % (Auto) 0.2 (0.0-2.0) % Neut # (Auto) 3.35 (1.40-7.00) K/uL Lymph # (Auto) 0.58 (0.50-3.50) K/uL [place] # (Auto) 0.37 (0.00-1.00) K/uL Eos # (Auto) 0.04 (0.00-0.50) K/uL Baso # (Auto) 0.01 (0.00-0.20) K/uL Sodium 137 (136-145) mmol/L Potassium 4.7 (3.5-5.1) mmol/L Chloride 100 (98-107) mmol/L Carbon Dioxide 27.9 (21.0-32.0) mmol/L BUN 9 (7-18) mg/dL Creatinine 0.66 (0.51-1.17) mg/dL Est Cr Clr Drug Dosing 119.02 mL/min Estimated GFR (MDRD) > 60 mL/min Glucose 343 H (74-106) mg/dL Calcium 8.6 (8.5-10.1) mg/dL Total Bilirubin 0.4 (0.2-1.0) mg/dL AST 15 (15-37) U/L ALT 21 (12-78) U/L Alkaline Phosphatase 61 (46-116) IU/L Total Protein 7.0 (6.4-8.2) g/dL Albumin 2.7 L (3.4-5.0) g/dL SARS-CoV-2 RNA (EDUAR) Positive H (NEGATIVE) - Re-Assessments/Exams Free Text/Narrative Re-Assessment/Exam: 09/12/20 15:38 See lab Covid positive Departure - Departure Time of Disposition: 15:40 Disposition: Home, Self-Care 01 Clinical Impression: COVID-19 - Discharge Information *PRESCRIPTION DRUG MONITORING PROGRAM REVIEWED*: Not Applicable *COPY OF PRESCRIPTION DRUG MONITORING REPORT IN PATIENT [place]: Not Applicable Instructions: COVID-19, Prevent the Spread of COVID-19 if You Are Sick - [facility] Referrals: Ruddy White, PA [Primary Care Provider] - Additional Instructions: Tylenol or Motrin Monitor blood glucose and improve glucose control Diet as tolerated Follow up in clinic Sepsis Event Note (ED) - Evaluation Sepsis Screening Result: No Definite Risk - Focused Exam Vital Signs: Vital Signs Temp Pulse Resp BP Pulse Ox 09/12/20 14:11 96.8 F L 74 18 176/91 H 100
[2020-09-12] MEDS: Ketorolac 60 MG/2 ML SDV IM ONE (16:01)
== END 2020-09-12 16:20 | disposition home or self-care (01) ==
LOC: LL.ED 14:10
DX: U07.1 COVID-19 (principal); I10 Essential (primary) hypertension; J44.9 Chronic obstructive pulmonary disease, unspecified; M19.90 Unspecified osteoarthritis, unspecified site; E78.5 Hyperlipidemia, unspecified; F41.9 Anxiety disorder, unspecified; F32.9 Major depressive disorder, single episode, unspecified; Z88.5 Allergy status to narcotic agent; E11.40 Type 2 diabetes mellitus with diabetic neuropathy, unspecified; Z79.82 Long term (current) use of aspirin; Z79.899 Other long term (current) drug therapy; Z79.4 Long term (current) use of insulin
CPT/HCPCS: 36415; 80053; 85025; 96372; 99284; J1885; U0002

== ENCOUNTER 2020-12-02 22:03 | Emergency (ER) | payer MEDICAID ==
[2020-12-02 22:43] LABS: CHLORIDE,CL 99 mmol/L (98-107); SODIUM,NA 134 mmol/L (136-145)
[2020-12-02] MEDS: Morphine 4 MG/ML Syringe IVPUSH ONE (23:02)
[2020-12-02] MEDS: Ondansetron 4 MG/2 ML SDV IVPUSH ONE (23:06)
[2020-12-02] MEDS: Sodium Chloride 0.9% 1,000 ML IV ONE (23:06)
--- NOTE | 2020-12-02 23:28 | EDM.PDOC ---
ED HPI GENERAL MEDICAL PROBLEM - General Chief Complaint: Abdominal Pain Stated Complaint: LEFT SIDE PAIN Time Seen by Provider: 12/02/20 22:20 Source of Information: Reports: Patient History Limitations: Reports: No Limitations - History of Present Illness INITIAL COMMENTS - FREE TEXT/NARRATIVE: Pt states he has had left sided abdominal pain for several days Thought he was constipated and used enema without relief No fever No N/V/D Pain is in left side and moves to back and groin No trauma No previous hx/o same Onset: Gradual Duration: Day(s):, Getting Worse Location: Reports: Abdomen, Radiates to (Back) Quality: Reports: Stabbing Treatments [employer] REPA[employer]ER: Reports: Other Medication(s) Left Lower Abdomen Pain Score (Numeric/FACES): 9 - Related Data Allergies Allergy/AdvReac Type Severity Reaction Status Date / Time tramadol Allergy Dizziness Verified 12/02/20 22:05 Home Meds: Home Meds Amitriptyline HCl 10 mg PO BEDTIME 05/30/14 [History] Aspirin 325 mg PO DAILY 05/30/14 [History] DULoxetine HCl [Duloxetine HCl] 30 mg PO TID 05/30/14 [History] Exenatide [Byetta] 10 mcg SUBCUT BID 05/30/14 [History] Fenofibrate Nanocrystallized [Fenofibrate] 145 mg PO DAILY 05/30/14 [History] Hydrochlorothiazide 25 mg PO DAILY 05/30/14 [History] Insulin Aspart [NovoLOG] 60 units SUBCUT TIDAC 05/30/14 [History] Insulin Glarg,Human.Rec.Analog [Lantus] 100 unit SUBCUT BEDTIME 05/30/14 [History] QUEtiapine Fumarate [Seroquel] 25 mg PO DAILY 05/30/14 [History] Simvastatin [Zocor] 20 mg PO DAILY 05/30/14 [History] atenoloL [Tenormin] 25 mg PO DAILY 05/30/14 [History] lisinopriL [Prinivil] 10 mg PO DAILY 05/30/14 [History] metFORMIN [Glucophage] 1,000 mg PO BID 05/30/14 [History] Acetaminophen 1,000 mg PO Q4HR PRN 11/05/15 [History] Ibuprofen [Motrin] 800 mg PO Q8H PRN 01/17/18 [History] Past Medical History HEENT History: Reports: Hard of Hearing, Impaired Vision, Other (See Below) Other HEENT History: Patient wears glasses. Right-sided hearing loss with no workup to this point Cardiovascular History: Reports: Arrhythmia, High Cholesterol, Hypertension, Other (See Below) Other Cardiovascular History: Hyperlipidemia with secondary fatty liver and fatty pancreas by ultrasound. Incomplete right bundle branch block history of tachycardia and mild left atrial enlargement Respiratory History: Reports: COPD, Sleep Apnea, Other (See Below) Other Respiratory History: Severe obstructive sleep apnea with current Bi-PAP therapy. COPD by chest x-ray Gastrointestinal History: Reports: Cholelithiasis, Colon Polyp, Diverticulosis, GERD, Other (See Below) Other Gastrointestinal History: Fatty liver as above. Nonsymptomatic cholelithiasis and diverticulosis by CT scan. Colonic Polypectomy 3 with polyps of unknown character in about 2013 Genitourinary History: Reports: BPH, Pyelonephritis, Renal Calculus, Urinary Incontinence, Other (See Below) Other Genitourinary History: Left-sided hydronephrosis and urolithiasis on 03/16/15 with spontaneous passage. Large stable benign right renal cyst. Musculoskeletal History: Reports: Arthritis, Back Pain, Chronic, Neck Pain, Chronic, Osteoarthritis, Other (See Below) Other Musculoskeletal History: Distal fibular fracture at about age 13. Severe low back pain with secondary disability. Idiopathic myositis with secondary CPK elevation. Carpal tunnel syndrome Neurological History: Reports: Headaches, Chronic, Head Trauma, Neuropathy, Diabetic, Neuropathy, Peripheral, Other (See Below) Other Neuro History: [place] Palsy left-sided. Minor left occipital contusion at about age 10. Psychiatric History: Reports: Anxiety, Depression, Panic Attack Endocrine/Metabolic History: Reports: Diabetes, Type II, IDDM Immunologic History: Reports: None Oncologic (Cancer) History: Reports: None Dermatologic History: Reports: None, Eczema, Psoriasis, Other (See Below) Other Dermatologic History: Lipoma of the right axillary region - Infectious Disease History Infectious Disease History: Reports: Chicken Pox, Measles, Mumps, Pertussis (Whooping Cough), Other (See Below) Other Infectious Disease History: Gloria's palsy as above - Past Surgical History Head Surgeries/Procedures: Reports: None HEENT Surgical History: Reports: Adenoidectomy, Oral Surgery, Tonsillectomy, Other (See Below) Other HEENT Surgeries/Procedures: Teeth extractions. Tonsillectomy and adenoidectomy at age 6 Cardiovascular Surgical History: Reports: None Respiratory Surgical History: Reports: None GI Surgical History: Reports: Appendectomy, Colonoscopy, Polypectomy, Other (See Below) Other GI Surgeries/Procedures: Colonoscopy with polypectomy as above in about 2013. Appendectomy at age 3 Male Surgical History: Reports: Circumcision, Other (See Below) Other Male Surgeries/Procedures: Circumcision as an Endocrine Surgical History: Reports: None Neurological Surgical History: Reports: None Musculoskeletal Surgical History: Reports: None Oncologic Surgical History: Reports: None Dermatological Surgical History: Reports: None - Past Imaging History Past Imaging History: Reports: Cardiac Echo (11/21/12 with ejection fraction of 69%), CAT Scan (CT scan of the abdomen and pelvis with contrast on 03/16/15. Soft tissue ultrasound of the neck on 01/20/09), Mammogram (), Sleep Study (Multiple previous sleep studies with last evaluation on 01/20/16), Stress Testing (Cardiolite stress test on 08/22/08, possible additional follow-up distant repeat evaluation), Ultrasound (Renal ultrasound on 11/06/15. Right breast ultrasound on 09/15/17. [facility] De Jesus ultrasound on 04/16/13), Other (See Below) (Nerve conduction studies and EMGs in about 2005) Social & Family History - Family History HEENT: Reports: Cataract, Impaired Vision, Other (See Below) Other HEENT Family History: Father with cataracts Cardiac: Reports: Arrhythmia, Bypass, CAD, Hypertension, [place], Pacemaker, Stent, Other (See Below) Other Cardiac Family History: Parents with known heart disease and father requiring a four-vessel CABG in his 50s and subsequently in his 50s to 60s. Mother with rheumatic fever which did require valve replacement with subsequent repeat replacement and pacemaker placement. Hyperlipidemia in his parents Respiratory: Reports: COPD, Other (See Below) Other Respiratory Family Hisory: Father with COPD with history of tobacco use GI: Reports: Colon Polyps, Diverticulitis, Diverticulosis, Other (See Below) Other GI Family History: Mother with diverticulitis. Parents with polyps of unknown type Neurological: Reports: CVA, Other (See Below) Other Neurological Family History: Parents with history of CVA Psychiatric: Reports: Anxiety, Depression, Other (See Below) Other Psychiatric Family History: Mother with anxiety depression disorder Endocrine/Metabolic: Reports: Diabetes, type II, Hypothyroidism, IDDM, Other (See Below) Other Endocrine/Metabolic Family History: Father with hypothyroidism and AODMID Hematologic: Reports: Anemia, Other (See Below) Other Hematologic Family History: Mother with anemia Oncologic: Reports: Breast, Colon, Esophageal, Other (See Below) Other Oncologic Family History: Maternal grandmother with breast cancer. Pat ernal grandfather with possible esophageal cancer. Father with colon cancer - Tobacco Use Tobacco Use Status *Q: Former Tobacco User Used Tobacco, but Quit: Yes Month/Year Tobacco Last Used: 1989 - Caffeine Use Caffeine Use: Reports: Soda - Recreational Drug Use Recreational Drug Use: No - Living Situation & Occupation Living situation: Reports: ( from second in 1990 and from his first in 1986 with 2 children from this marriage), with Family (Dad) Occupation: Disabled (Secondary to low back pain as above in 2001) ED ROS GENERAL - Review of Systems Review Of Systems: See Below Respiratory: Reports: No Symptoms Cardiovascular: Reports: No Symptoms GI/Abdominal: Reports: Abdominal Pain : Reports: Flank Pain Musculoskeletal: Reports: Back Pain ED EXAM, GI/ABD - Physical Exam Exam: See Below Exam Limited By: No Limitations General Appearance: Moderate Distress Throat/Mouth: Normal Oropharynx Neck: Supple Respiratory/Chest: Lungs Clear Cardiovascular: Regular Rate, Rhythm GI/Abdominal Exam: Soft, Other (Tender on left No rebound No guarding) Back Exam: CVA Tenderness (L) Extremities: Normal Inspection Course - Vital Signs Last Recorded V/S: Last Vital Signs Temp 96.2 F L 12/02/20 22:21 Pulse 100 12/02/20 22:21 Resp 20 12/02/20 22:21 BP 188/91 H 12/02/20 22:38 Pulse Ox 100 12/02/20 22:21 - Orders/Labs/Meds Orders: Active Orders 24 hr Category Date Time Status Abdomen 1V Flat [CR] Stat Exams 12/02/20 22:10 Taken Abdomen Pelvis wo Cont [CT] Stat Exams 12/02/20 22:46 Taken Sodium Chloride 0.9% [Normal Saline] 1,000 ml Med 12/02/20 22:48 Active IV .BOLUS Medication Orders Sodium Chloride (Normal Saline) 1,000 mls @ 1,000 mls/hr IV .BOLUS ONE Stop: 12/02/20 23:47 Last Admin: 12/02/20 23:06 Dose: 1,000 mls/hr Documented by: JARED Labs: Laboratory Tests 12/02/20 12/02/20 12/02/20 Range/Units 22:22 22:22 22:32 WBC 7.8 (4.0-10.2) K/uL RBC 4.86 (4.33-5.41) M/uL Hgb 14.7 D (13.1-16.8) g/dL Hct 40.8 (39.0-49.0) % MCV 84.0 (84.0-98.0) fL MCH 30.2 (28.2-33.3) pg MCHC 36.0 (31.7-36.0) g/dL RDW 12.8 (11.2-14.1) % Plt Count 243 D (150-350) K/uL Neut % (Auto) 61.5 (45.0-80.0) % Lymph % (Auto) 30.5 (10.0-50.0) % Gage % (Auto) 6.3 (2.0-14.0) % Eos % (Auto) 1.2 (0.0-5.0) % Baso % (Auto) 0.5 (0.0-2.0) % Neut # (Auto) 4.77 (1.40-7.00) K/uL Lymph # (Auto) 2.37 (0.50-3.50) K/uL Gage # (Auto) 0.49 (0.00-1.00) K/uL Eos # (Auto) 0.09 (0.00-0.50) K/uL Baso # (Auto) 0.04 (0.00-0.20) K/uL Sodium 134 L (136-145) mmol/L Potassium 3.9 (3.5-5.1) mmol/L Chloride 99 (98-107) mmol/L Carbon Dioxide 22.2 (21.0-32.0) mmol/L BUN 19 H (7-18) mg/dL Creatinine 0.91 (0.51-1.17) mg/dL Est Cr Clr Drug Dosing 86.32 mL/min Estimated GFR (MDRD) > 60 mL/min Glucose 565 H* (74-106) mg/dL Calcium 8.7 (8.5-10.1) mg/dL Total Bilirubin 0.3 (0.2-1.0) mg/dL AST 7 L (15-37) U/L ALT 20 (12-78) U/L Alkaline Phosphatase 79 (46-116) IU/L Total Protein 6.7 (6.4-8.2) g/dL Albumin 3.5 (3.4-5.0) g/dL Lipase 136 (73-393) U/L Specimen Type Urinvoid Urine Color Yellow Urine Appearance Clear Urine pH 5.0 (5.0-9.0) Ur Specific [place] 1.010 (1.005-1.030) Urine Protein 100 H (NEGATIVE) mg/dL Urine Glucose (UA) >=1000 H (NEGATIVE) mg/dL Urine Ketones Negative (NEGATIVE) mg/dL Urine Occult Blood Small H (NEGATIVE) Urine Nitrite Negative (NEGATIVE) Urine Bilirubin Negative (NEGATIVE) Urine Urobilinogen 0.2 (0.2-1.0) E.U./dL Ur Leukocyte Esterase Negative (NEGATIVE) Urine RBC 5-10 H /HPF Urine WBC Not seen /HPF Ur Epithelial Cells Rare /LPF Urine Bacteria Not seen (NONE TO FEW) /HPF Meds: Medications Generic Name Dose Route Start Last Admin Trade Name Freq PRN Reason Stop Dose Admin Sodium Chloride 1,000 mls @ 1,000 mls/hr 12/02/20 22:48 12/02/20 23:06 Normal Saline IV 12/02/20 23:47 1,000 mls/hr .BOLUS ONE Administration Discontinued Medications Generic Name Dose Route Start Last Admin Trade Name Freq PRN Reason Stop Dose Admin Morphine Sulfate 4 mg 12/02/20 22:48 12/02/20 23:02 Morphine IVPUSH 12/02/20 22:49 4 mg ONETIME ONE Administration Ondansetron HCl 8 mg 12/02/20 22:49 12/02/20 23:06 Zofran IVPUSH 12/02/20 22:50 8 mg ONETIME ONE Administration - Re-Assessments/Exams Free Text/Narrative Re-Assessment/Exam: 12/02/20 23:25 See lab Pt given 1 L NS, Morphine 4 mg IV and Zofran 8 mg IV in ER CT per radiologist 3 mm left ureteral stone Also with possible mass in left reanl cortex Will need follow up outpatient CT with IV contrast in 1 week after ureteral stone passes Departure - Departure Time of Disposition: 23:30 Disposition: Home, Self-Care 01 Clinical Impression: Ureteral calculus, left - Discharge Information *PRESCRIPTION DRUG MONITORING PROGRAM REVIEWED*: Not Applicable *COPY OF PRESCRIPTION DRUG MONITORING REPORT IN PATIENT DEEPAK: Not Applicable Referrals: PCP,None [Primary Care Provider] - Additional Instructions: Strain urine Rx Tramadol 50 mg every 6 hours for pain Follow up in clinic for recheck and outpatient CT of kidney Sepsis Event Note (ED) - Evaluation Sepsis Screening Result: No Definite Risk - Focused Exam Vital Signs: Vital Signs Temp Pulse Resp BP Pulse Ox 12/02/20 22:38 188/91 H 12/02/20 22:21 96.2 F L 100 20 206/84 H 100 - My Orders Last 24 Hours: My Active Orders 12/02/20 22:10 Abdomen 1V Flat [CR] Stat 12/02/20 22:46 Abdomen Pelvis wo Cont [CT] Stat 12/02/20 22:48 Sodium Chloride 0.9% [Normal Saline] 1,000 ml IV .BOLUS - Assessment/Plan Last 24 Hours: My Active Orders 12/02/20 22:10 Abdomen 1V Flat [CR] Stat 12/02/20 22:46 Abdomen Pelvis wo Cont [CT] Stat 12/02/20 22:48 Sodium Chloride 0.9% [Normal Saline] 1,000 ml IV .BOLUS
[2020-12-02] MEDS: Tamsulosin 0.4 MG Cap.ER PO ONE (23:39)
[2020-12-02] MEDS: HYDROmorphone 1 MG/ML Syringe IVPUSH ONE (23:42)
[2020-12-03 02:28] VITALS: BP 142/57; PULSE 95
== END 2020-12-03 02:05 | disposition home or self-care (01) ==
LOC: LL.ED 22:03
DX: N20.1 Calculus of ureter (principal); E78.5 Hyperlipidemia, unspecified; J44.9 Chronic obstructive pulmonary disease, unspecified; K21.9 Gastro-esophageal reflux disease without esophagitis; M19.90 Unspecified osteoarthritis, unspecified site; E11.9 Type 2 diabetes mellitus without complications; Z79.4 Long term (current) use of insulin; Z79.82 Long term (current) use of aspirin; Z79.899 Other long term (current) drug therapy; Z87.891 Personal history of nicotine dependence
CPT/HCPCS: 36415; 74018; 74176; 80053; 81001; 83690; 85025; 96374; 96375; 99284; 99284-25; A9270-GY; J1170; J2270; J2405; J7030